=== PATIENT | female | born 1950 | race Caucasian/White ===

== ENCOUNTER 2017-11-17 13:23 | Outpatient (CLI) | payer OTHER | END 2017-11-17 14:34 | disposition home or self-care (01) | LOC: SONOGRAMA 13:23 → MAMO-SONO 14:15 → SONOGRAMA 14:34 | DX: E04.1 Nontoxic single thyroid nodule (principal); E59 Dietary selenium deficiency ==

== ENCOUNTER 2018-10-21 08:59 | Outpatient (CLI) | payer OTHER | END 2018-10-21 10:23 | disposition home or self-care (01) | LOC: MAMO-SONO 08:59 | DX: Z12.31 Encounter for screening mammogram for malignant neoplasm of breast (principal); Z87.898 Personal history of other specified conditions; N60.11 Diffuse cystic mastopathy of right breast; N30.00 Acute cystitis without hematuria; N28.1 Cyst of kidney, acquired; E04.1 Nontoxic single thyroid nodule ==

== ENCOUNTER 2019-11-23 15:29 | Outpatient (CLI) | payer OTHER | END 2019-11-23 15:31 | disposition home or self-care (01) | LOC: RAD 15:29 | DX: I10 Essential (primary) hypertension (principal); Z00.00 Encounter for general adult medical examination without abnormal findings; M94.0 Chondrocostal junction syndrome [Tietze] ==

== ENCOUNTER 2021-02-27 13:35 | Outpatient (CLI) | payer OTHER | END 2021-02-27 13:41 | disposition home or self-care (01) | LOC: RAD 13:35 | PROVIDERS: ATTEND Internal Medicine Infectious Disease | DX: U07.1 COVID-19 (principal) ==

== ENCOUNTER 2021-08-15 11:21 | Outpatient (CLI) | payer OTHER | END 2021-08-15 11:32 | disposition home or self-care (01) | LOC: MAMO-SONO 11:21 | PROVIDERS: ATTEND Obstetrics & Gynecology | DX: N60.11 Diffuse cystic mastopathy of right breast (principal); R10.2 Pelvic and perineal pain; E04.8 Other specified nontoxic goiter ==

== ENCOUNTER 2024-11-10 10:18 | Outpatient (CLI) | payer OTHER | END 2024-11-10 10:24 | disposition home or self-care (01) | LOC: MAMO-SONO 10:18 | PROVIDERS: ATTEND Obstetrics & Gynecology Maternal & Fetal Medicine | DX: R10.11 Right upper quadrant pain (principal); N63.0 Unspecified lump in unspecified breast; Z12.31 Encounter for screening mammogram for malignant neoplasm of breast; N64.4 Mastodynia; N60.11 Diffuse cystic mastopathy of right breast; E04.1 Nontoxic single thyroid nodule ==

== ENCOUNTER 2024-12-14 11:00 | Outpatient (CLI) | payer OTHER | END 2024-12-14 11:01 | disposition home or self-care (01) | LOC: SONOGRAMA 11:00 | PROVIDERS: ATTEND Pathology Anatomic Pathology & Clinical Pathology | DX: D34 Benign neoplasm of thyroid gland (principal); E03.8 Other specified hypothyroidism; E07.89 Other specified disorders of thyroid ==